=== PATIENT | male | born 1950 | race Caucasian/White ===

== ENCOUNTER 2016-05-22 14:02 | Inpatient (IN) | payer OTHER ==
--- NOTE | ~2016-05-22 | DS ---
Unit #: [id number] #: [id number] Patient: KAMAR ROGERS [id number] [place], [place] [address] [id number] I MR#: [id number] NAME: KAMAR ROGERS ROOM: 468 Age: 65 Sex: M Admission Date: 05/22/2016 : 1950 Discharge Date: 05/25/2016 Attending Physician: Lefty Cuellar M.D. Primary Care Physician: Anna Cedeño M.D. DISCHARGE SUMMARY CONSULTANTS 1. Dr. Clark. 2. Dr. Alcocer. PROCEDURES DONE Laparoscopic cholecystectomy was attempted and converted to a full cholecystectomy. ADMITTING DIAGNOSES 1. Abdominal pain. 2. Acute cholecystitis. FURTHER DIAGNOSES 1. History of partial small bowel obstruction. 2. History of prostate cancer. 3. Sinus bradycardia. HISTORY OF PRESENTING ILLNESS Patient is a 65-year-old man with a past medical history of small bowel obstruction, history of prostate cancer, history of chronic smoking, presented to the emergency room with a chief complaint of abdominal pain. HOSPITAL COURSE In the initial evaluation he was noted to have cholecystitis and for further evaluation Surgery was consulted. Surgery started on antimicrobials, planned to do a laparoscopic cholecystectomy and due to the amount of adhesions in the abdomen it was converted to open cholecystectomy. He tolerated the procedure well. In the preop period he was noted to have sinus bradycardia. Cardiology was consulted. A lipid panel was checked. His LDL is 140; started on Lipitor. I did explain to him about the side effects of Lipitor and stating including rhabdomyolysis, elevated LFTs. He understands and agrees to be on that. Cardiology recommended further ischemic workup to be done as an outpatient once he is discharged. He was counseled strongly to quit smoking. He has a followup appointment with Dr. Clark on July 16 at 2:15 p.m. in his office and also a followup appointment with general surgeons in a week for removing the amanda. He is doing clinically better and he wants to go home. Requested him to follow with his primary care and with Cardiology and with Surgery after discharge. Unit #: [id number] #: [id number] Patient: KAMAR ROGERS PHYSICAL EXAMINATION ON THE DAY OF DISCHARGE VITAL SIGNS: Temperature 98.2, pulse rate 76, respiratory rate 18, blood pressure 125/57. GENERAL: Patient is alert and oriented x3, lying in the bed in no acute distress. HEENT: Normocephalic and atraumatic. No icterus. PERRLA. Extraocular movements intact. NECK: Neck is supple. No JVD. HEART: S1, S2, bradycardic. CHEST: Bilateral equal air entry, clear to auscultation. ABDOMEN: Surgical site looks clean. EXTREMITIES: No edema. Normal pulses. DISCHARGE MEDICATIONS 1. Levaquin 750 mg p.o. daily for three more days. 2. Suring 7.5/325 mg one tablet p.o. q.6 h. p.r.n. for pain. 3. Lipitor 40 mg p.o. daily. 4. Omeprazole 40 mg p.o. daily. DISCHARGE INSTRUCTIONS All the discharge instructions were explained in detail to the patient. Total time spent in his care 28 minutes. Dictated by... Dany De Souza TD: 05/28/2016 15:14 JOB #: [id number] DISCHARGE SUMMARY X X DISCHARGE SUMMARY
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
--- NOTE | ~2016-05-22 | CR72 ---
[facility] A Service of [facility] RADIOLOGY TEXT RESULTS PATIENT: KAMAR ROGERS LOCATION: [facility] 468 : [birth year] UNIT #: [id number] AGE: [address]: Lefty Cuellar MD SEX: M ORDER DR: [id number] [facility] [address]. [place], [place] [address] [id number] I MR#: [id number] Acc #: [id number] NAME: KAMAR ROGERS : 1950 SEX: M STUDY DATE/TIME: 05/25/2016 2:36 UNIT: [facility] ROOM: [facility] STUDY DESCRIPTION: CR Chest Single View Portable Attending Physician: Lefty Cuellar M.D. Ordering Physician: Mary Burdick M.D. Primary Care Physician: Anna Cedeño M.D. MEDICAL IMAGING REPORT This report is preliminary unless electronic signature is present EXAM AP portable chest, 05/25/2016 at 0236. HISTORY Respiratory stress. Low oxygen saturations. Shortness of breath. COMPARISON AP portable chest, 06/19/2012. FINDINGS Mild bibasilar atelectasis or infiltrates are present with probable trace left pleural fluid. Old left rib fractures. Heart size within normal limits. No pneumothorax. IMPRESSION 1. Mild bibasilar atelectasis or infiltrates with probable trace left pleural fluid. 2. Old left rib fractures. 3. Old right rib fracture, not included in the body of the report. Dictated by... Larissa Del Rio M.D. THIS IS AN ELECTRONICALLY VERIFIED REPORT Larissa Del Rio M.D. at 05/29/2016 8:37 AM LLH/mor TD: 05/25/2016 10:20 JOB #: [id number] MEDICAL IMAGING REPORT [facility] A Service of [facility] RADIOLOGY TEXT RESULTS PATIENT: KAMAR ROGERS LOCATION: [facility] 468- : [birth year] UNIT #: [id number] AGE: [address]: Lefty Cuellar MD SEX: M ORDER DR: Page 1 of 1 COPY
--- NOTE | ~2016-05-22 | NM22 ---
[facility] A Service of [facility] RADIOLOGY TEXT RESULTS PATIENT: KAMAR ROGERS LOCATION: [facility] 468-01 : [birth year] UNIT #: [id number] AGE: [address]: Lefty Cuellar MD SEX: M ORDER DR: [id number] [facility] [address] [facility]. [place], [place] [address] [id number] I MR#: [id number] Acc #: [id number] NAME: KAMAR ROGERS : 1950 SEX: M STUDY DATE/TIME: 05/22/2016 20:49 UNIT: [facility] ROOM: [facility] STUDY DESCRIPTION: NM Hepatobiliary W GB Pharm Attending Physician: Lefty Cuellar M.D. Ordering Physician: Emilee Etienne M.D. Primary Care Physician: Anna Cedeño M.D. MEDICAL IMAGING REPORT This report is preliminary unless electronic signature is present EXAM Hepatobiliary scan INDICATIONS Right upper quadrant abdominal pain. Abnormal CT scan of the abdomen. COMPARISON CT abdomen and pelvis dated 05/22/2016. FINDINGS 5.6 mCi Technetium 99m Choletec was administered IV per protocol. There is rapid uptake of the radiotracer by the liver with subsequent excretion into the biliary tract. The gallbladder does not opacify by 60 minutes indicating at least chronic or acute cholecystitis. Unfortunately due to patient's pain, he could not tolerate additional imaging to the 2-hour can to differentiate acute and chronic cholecystitis. There is normal distribution of radiotracer in the small bowel. IMPRESSION Nonvisualization of the gallbladder at 60 minutes indicating either an acute or chronic cholecystitis. Given the findings on the CT scan, acute cholecystitis is strongly favored. Please note that traditionally 2 hour imaging is required to differentiate acute and chronic cholecystitis, however, the patient could not tolerate prolonged imaging due to the right upper quadrant abdominal pain. Dictated by... Compa Keyes M.D. THIS IS AN ELECTRONICALLY VERIFIED REPORT Compa Keyes M.D. at 05/23/2016 12:20 PM C/bd [facility] A Service of [facility] RADIOLOGY TEXT RESULTS PATIENT: KAMAR ROGERS LOCATION: [facility] 468-01 : [birth year] UNIT #: [id number] AGE: [address]: Lefty Cuellar MD SEX: M ORDER DR: TD: 05/23/2016 11:30 JOB #: [id number] MEDICAL IMAGING REPORT COPY
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
--- NOTE | ~2016-05-22 | CT2 ---
[facility] A Service of [facility] & [facility] RADIOLOGY TEXT RESULTS PATIENT: KAMAR ROGERS LOCATION: [facility] 468-01 : [birth year] UNIT #: [id number] AGE: [address]: Lefty Cuellar MD SEX: M ORDER DR: [id number] [facility] [address] [place], [place] [address] [id number] I MR#: [id number] Acc #: [id number] NAME: KAMAR ROGERS : 1950 SEX: M STUDY DATE/TIME: 05/22/2016 14:37 UNIT: [facility] ROOM: [facility] STUDY DESCRIPTION: CT Abd and Pelv W Cont Attending Physician: Emilee Etienne M.D. Ordering Physician: Ac Christianson M.D. Primary Care Physician: Anna Cedeño M.D. MEDICAL IMAGING REPORT This report is preliminary unless electronic signature is present EXAM Abdomen and pelvis CT with contrast, 05/22/2016 HISTORY Right-sided abdominal pain beginning 1 day ago. TECHNIQUE Axial images were obtained with oral and intravenous contrast. 100 mL of Isovue was used. Comparison made to previous scan from 09/13/2010. CT dose-reduction techniques were employed. This CT exam was performed with one or more of the following radiation dose reduction techniques: automatic exposure control, adjustment of mA and/or kV according to patient size, and iterative reconstruction. FINDINGS The liver has a somewhat patchy peripheral enhancement pattern. This may simply reflect the phase of contrast injection. The appearance was similar on the previous scan in 2010. No suspicious liver lesions are seen and there is no evidence of bowel duct dilatation. The gallbladder wall is edematous. No calcified stones are seen. Consider further evaluation with nuclear medicine gallbladder imaging and ultrasound. This is suspicious for cholecystitis. The spleen, pancreas, kidneys and adrenals are unremarkable. Postoperative changes are seen in the abdomen. There is no evidence of bowel obstruction. The appendix is normal. In the pelvis there is no evidence of adenopathy, mass or fluid collection. Postoperative changes of lower lumbar laminectomy noted. IMPRESSION 1. Abnormal gallbladder with edematous gallbladder wall suspicious for acute cholecystitis. Consider further evaluation with ultrasound and nuclear medicine imaging. [facility] A Service of [facility] & [facility] RADIOLOGY TEXT RESULTS PATIENT: KAMAR ROGERS LOCATION: [facility] 468-01 : [birth year] UNIT #: [id number] AGE: [address]: Lefty Cuellar MD SEX: M ORDER DR: 2. No other acute or inflammatory changes are seen elsewhere in the abdomen or pelvis. No evidence of bowel obstruction or free air. 3. Atherosclerotic changes in the lower abdominal aorta are quite extensive and there is occlusion of the left common and proximal external iliac arteries with collateral refilling of the common femoral artery at the left groin. This is accompanied by mild aneurysmal dilatation of the infrarenal abdominal aorta to a maximum diameter of 2.7 cm. The left iliac occlusive disease is new since the 2011 CT scan. Dictated by... Michael Louis M.D. THIS IS AN ELECTRONICALLY VERIFIED REPORT Michael Louis M.D. at 05/23/2016 3:41 PM RASIHDA/sharon TD: 05/22/2016 23:25 JOB #: [id number] MEDICAL IMAGING REPORT COPY
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
--- NOTE | ~2016-05-22 | EKG ---
PATIENT: KAMAR ROGERS UNIT #: [id number] Ventricular Rate: 46 BPM Atrial Rate: 46 BPM P-R Interval: 142 ms QRS Duration: 94 ms Q-T Interval: 482 ms QTC Calculation(Bezet): 421 ms P [place]: 73 degrees Calculated R [place]: 40 degrees Calculated T [place]: 44 degrees Diagnosis Line: Sinus bradycardia Diagnosis Line: Otherwise normal ECG Diagnosis Line: When compared with ECG of 19-JUN-2012 18:22, Diagnosis Line: Vent. rate has decreased BY 24 BPM Diagnosis Line: Confirmed by JOE JOSE MD ([id number]) on Diagnosis Line: 05/23/2016 11:26:08 AM INTERPRETING MD: REBECA YOUSSEF
--- NOTE | ~2016-05-22 | OR ---
Unit #: [id number] #: [id number] Patient: KAMAR ROGERS [id number] [facility]. [place], [place] [address] [id number] Keerthi MR#: [id number] NAME: KAMAR ROGERS ROOM: [facility] Date of Procedure: 05/23/2016 Admission Date: 05/22/2016 Surgeon: Gonzales Hicks III, M.D. : 1950 Attending Physician: Lefty Cuellar M.D. Primary Care Physician: Anna Cedeño M.D. OPERATIVE REPORT PREOPERATIVE DIAGNOSIS Acute cholecystitis. POSTOPERATIVE DIAGNOSES Acute cholecystitis with multiple intraabdominal adhesions. PROCEDURE PERFORMED Attempted laparoscopic cholecystectomy with conversion to open cholecystectomy. DIRECTOR STYLE Dr. Power Meadows. SPECIMEN Gallbladder to pathology. COMPLICATIONS None apparent. ESTIMATED BLOOD LOSS 150 mL. INDICATIONS FOR PROCEDURE This is a 65-year-old gentleman, who presented with acute right upper quadrant pain. It is noted to have what looked like acute cholecystitis on imaging. He is here today for lap jeanna, but understands risks of converting to an open because he has had 2 prior midline incisions. DESCRIPTION OF PROCEDURE After consent was obtained, the patient was brought to the operating room and placed in the supine position. General anesthetic was administered. His abdomen was prepped and draped in standard surgical fashion. I was able to palpate the gallbladder through the abdominal wall prior to the case. I used a 5-mm Optiview to attempt entry into the abdominal cavity. Once I thought, I was then what was the peritoneum. I tried to insufflate; however, there was a bunch of wispy adventitial type tissue consistent with adhesions. I really could make any progress laparoscopically to create the space to work, so I had made the decision to convert to an open procedure. I made a right upper quadrant incision. I divided the rectus muscle and entered into the peritoneal cavity without any difficulty. He had a lot of adhesions that basically enveloped the gallbladder itself. I was able to shell those out and then once doing so, Unit #: [id number] #: [id number] Patient: KAMAR ROGERS I was able to identify the gallbladder easily. I used the dome down technique to take the gallbladder off the liver bed using a combination of blunt dissection and cautery. Once I had the gallbladder skeletonized, I then dissected out the cystic duct and cystic artery and I placed 2 clips proximally on this and then divided the structure and sent it to pathology. I used a Bovie cautery for hemostasis along the liver bed. I irrigated and then placed some Surgicel on the liver bed to aid in hemostasis. Hemostasis was excellent afterwards. All needle, sponge, and instrument counts were correct x2. I closed the peritoneum and posterior fascia with a running 0 Vicryl suture. The anterior fascia was reapproximated with interrupted #1 Vicryl suture. I then reapproximated the skin edges with stapling device. He tolerated the procedure without any problems and returned to the recovery room in stable condition. Dictated by... Gonzales Hicks III, M.D. VCL/shayy TD: 05/24/2016 08:42 JOB #: [id number] OPERATIVE REPORT X Gonzales Hicks III, MD PROCEDURE OPERATIVE NOTE
[2016-05-22 13:36] LABS: URINE SOURCE CLEAN CATCH
[2016-05-22 13:42] LABS: BASOPHIL# 0.1 X10e3 (0-0.3); BASOPHIL% 0.7 % (0-2.5); DIFF IND NO; EOSINOPHIL# 0.1 X10e3 (0-0.7); EOSINOPHIL% 1.2 % (0.0-7.0); HEMATOCRIT 47.8 % (38.0-50.0); HEMOGLOBIN 16.1 gm/dL (13.0-16.0); LYMPHOCYTE# 0.9 X10e3 (1.0-3.5); LYMPHOCYTE% 11.6 % (17.0-45.0); MEAN CELL VOLUME 91.2 FL (83-96); MEAN CORPUSCULAR HEMOGLOBIN 30.7 PG (28-34); MEAN CORPUSCULAR HGB CONC 33.6 g/dL (30-36); MEAN PLATELET VOLUME 7.8 FL (6.5-11.5); MONOCYTE# 0.7 X10e3 (0-1.0); MONOCYTE% 9.5 % (3.0-12.0); PLATELET COUNT 176 X10e3 (140-420); RED BLOOD COUNT 5.24 X10e (3.90-5.60); RED CELL DISTRIBUTION WIDTH 14.1 % (11.0-15.5); WHITE BLOOD COUNT 7.8 X10e3 (4.0-10.5)
[2016-05-22 14:01] LABS: URINE APPEARANCE CLEAR; URINE BILIRUBIN NEG (NEG); URINE BLOOD NEG (NEG); URINE COLOR YELLOW; URINE GLUCOSE NEG (NEG); URINE KETONE NEG (NEG); URINE LEUKOCYTE ESTERASE TRACE (NEG); URINE NITRATE NEG (NEG); URINE PROTEIN 2+ (NEG); URINE SPECIFIC GRAVITY 1.024 (1.003-1.035)
[~2016-05-22 14:02] MED LIST: ACETAMINOPHEN650 M4 PO; DIAZEPAM PO; FLEXERIL10 MG PO; IBUPROFEN800 MG PO; LORTAB 10/500 T1 TAB PO; NO MEDICATIONS; PREDNISONE PO; VIBRAMYCIN100 M1 PO
[2016-05-22 14:04] LABS: URBCS1 AUWI 0-2 /[HPF] (0-2); URINE BACTERIA AUWI NEG (NEGATIVE); URINE SQUAMOUS EPITHELIAL CELL OCC /[HPF]; UWBCS1 AUWI 0-2 (0-5)
[2016-05-22 14:07] LABS: CULTURE INDICATED? NO; URINE PH 9.5 (5-8)
[2016-05-22 14:18] LABS: ALBUMIN SERUM 4.3 g/dL (3.5-5.0); ALKALINE PHOSPHATASE 86 U/L (32-92); ALT (SGPT) 18 U/L (10-40); AMYLASE 34 U/L (0-46); AST (SGOT) 25 U/L (10-42); BILIRUBIN, DIRECT 0.1 mg/dL (0.0-0.2); BILIRUBIN,INDIRECT 0.6 mg/dL (0.0-0.9); BILIRUBIN,TOTAL 0.7 mg/dL (0.2-2.0); BLOOD UREA NITROGEN 15 mg/dL (9-23); BUN/CREATININE RATIO 18.75; CARBON DIOXIDE 32 mmol/L (22-31); CHLORIDE 102 mmol/L (100-111); CREATININE SERUM 0.8 mg/dL (0.6-1.4); GLOM FILT RATE Estimated ABOVE60 mL/min (>60); GLUCOSE FASTING 109 mg/dL (70-110); LIPASE 20 U/L (22-51); POTASSIUM 3.6 mmol/L (3.5-5.1); PROTEIN TOTAL SERUM 7.4 g/dL (6.0-8.3); SODIUM 138 mmol/L (135-145)
[2016-05-22] MEDS ORDERED: OMEPRAZOLE40 M1 PO (15:50)
[2016-05-22 18:15] LABS: CK TOTAL 47 IU/L (36-174)
[2016-05-23 00:26] LABS: CK TOTAL 57 IU/L (36-174)
[2016-05-23 04:34] LABS: BASOPHIL# 0.1 X10e3 (0-0.3); BASOPHIL% 0.9 % (0-2.5); EOSINOPHIL# 0.2 X10e3 (0-0.7); EOSINOPHIL% 3.7 % (0.0-7.0); MEAN CELL VOLUME 91.1 FL (83-96); MEAN CORPUSCULAR HEMOGLOBIN 30.2 PG (28-34); MEAN CORPUSCULAR HGB CONC 33.2 g/dL (30-36); MONOCYTE# 0.8 X10e3 (0-1.0); MONOCYTE% 11.9 % (3.0-12.0); NEUTROPHIL# 4.6 X10e3 (1.5-7.1); NEUTROPHIL% 68.5 % (40-75); PLATELET COUNT 153 X10e3 (140-420); RED BLOOD COUNT 4.28 X10e (3.90-5.60); RED CELL DISTRIBUTION WIDTH 13.9 % (11.0-15.5); WHITE BLOOD COUNT 6.7 X10e3 (4.0-10.5)
[2016-05-23 04:43] LABS: HEMOGLOBIN 12.9 gm/dL (13.0-16.0)
[2016-05-23 04:45] LABS: DIFF IND NO
[2016-05-23 04:52] LABS: ALBUMIN SERUM 3.3 g/dL (3.5-5.0); ALKALINE PHOSPHATASE 83 U/L (32-92); ALT (SGPT) 70 U/L (10-40); AST (SGOT) 65 U/L (10-42); BILIRUBIN,TOTAL 0.8 mg/dL (0.2-2.0); BLOOD UREA NITROGEN 14 mg/dL (9-23); CALCIUM SERUM 8.3 mg/dL (8.4-10.2); CARBON DIOXIDE 30 mmol/L (22-31); CHLORIDE 103 mmol/L (100-111); CREATININE SERUM 0.8 mg/dL (0.6-1.4); GLOM FILT RATE Estimated ABOVE60 mL/min (>60); GLUCOSE FASTING 85 mg/dL (70-110); POTASSIUM 3.8 mmol/L (3.5-5.1); PROTEIN TOTAL SERUM 5.7 g/dL (6.0-8.3); SODIUM 138 mmol/L (135-145)
[2016-05-23 06:46] LABS: PROTHROMBIN TIME (PATIENT) 10.4 SECONDS (9.6-11.5)
[2016-05-23 07:12] LABS: %MB 2.9 % (0.0-4.0); MB 2.1 ng/ml
[2016-05-24 04:01] LABS: BASOPHIL% 0.1 % (0-2.5); DIFF IND NO; HEMATOCRIT 40.3 % (38.0-50.0); HEMOGLOBIN 13.4 gm/dL (13.0-16.0); LYMPHOCYTE# 0.4 X10e3 (1.0-3.5); MEAN CELL VOLUME 91.9 FL (83-96); MEAN CORPUSCULAR HEMOGLOBIN 30.5 PG (28-34); MEAN CORPUSCULAR HGB CONC 33.3 g/dL (30-36); MEAN PLATELET VOLUME 8.7 FL (6.5-11.5); MONOCYTE# 0.9 X10e3 (0-1.0); MONOCYTE% 8.6 % (3.0-12.0); NEUTROPHIL# 9.3 X10e3 (1.5-7.1); NEUTROPHIL% 87.3 % (40-75); PLATELET COUNT 158 X10e3 (140-420); RED BLOOD COUNT 4.39 X10e (3.90-5.60); RED CELL DISTRIBUTION WIDTH 13.9 % (11.0-15.5); WHITE BLOOD COUNT 10.7 X10e3 (4.0-10.5)
[2016-05-24 04:37] LABS: ALBUMIN SERUM 3.4 g/dL (3.5-5.0); ALKALINE PHOSPHATASE 92 U/L (32-92); ALT (SGPT) 74 U/L (10-40); AST (SGOT) 55 U/L (10-42); BILIRUBIN,TOTAL 0.9 mg/dL (0.2-2.0); BLOOD UREA NITROGEN 16 mg/dL (9-23); BUN/CREATININE RATIO 17.77; CALCIUM SERUM 8.6 mg/dL (8.4-10.2); CARBON DIOXIDE 26 mmol/L (22-31); CHLORIDE 102 mmol/L (100-111); CHOLESTEROL 195 mg/dL (0-200); CREATININE SERUM 0.9 mg/dL (0.6-1.4); GLOM FILT RATE Estimated ABOVE60 mL/min (>60); GLUCOSE FASTING 112 mg/dL (70-110); HDL CHOLESTEROL 46 mg/dL (29-75); LDL CHOLESTEROL 140 mg/dL (-130); LDL/HDL RATIO 3 RATIO (0-4); POTASSIUM 4.4 mmol/L (3.5-5.1); PROTEIN TOTAL SERUM 5.9 g/dL (6.0-8.3); SODIUM 137 mmol/L (135-145); TRIGLYCERIDES 47 mg/dL (10-160)
[2016-05-25 04:59] LABS: HEMATOCRIT 35.4 % (38.0-50.0); HEMOGLOBIN 11.8 gm/dL (13.0-16.0); MEAN CELL VOLUME 91.5 FL (83-96); MEAN CORPUSCULAR HEMOGLOBIN 30.5 PG (28-34); MEAN CORPUSCULAR HGB CONC 33.3 g/dL (30-36); MEAN PLATELET VOLUME 7.9 FL (6.5-11.5); RED BLOOD COUNT 3.87 X10e (3.90-5.60); RED CELL DISTRIBUTION WIDTH 13.8 % (11.0-15.5); WHITE BLOOD COUNT 7.1 X10e3 (4.0-10.5)
[2016-05-25 06:09] LABS: ALBUMIN SERUM 2.9 g/dL (3.5-5.0); ALKALINE PHOSPHATASE 71 U/L (32-92); ALT (SGPT) 46 U/L (10-40); AST (SGOT) 42 U/L (10-42); BILIRUBIN,TOTAL 0.8 mg/dL (0.2-2.0); BLOOD UREA NITROGEN 11 mg/dL (9-23); BUN/CREATININE RATIO 12.22; CALCIUM SERUM 8.2 mg/dL (8.4-10.2); CARBON DIOXIDE 28 mmol/L (22-31); CHLORIDE 102 mmol/L (100-111); CREATININE SERUM 0.9 mg/dL (0.6-1.4); GLOM FILT RATE Estimated ABOVE60 mL/min (>60); GLUCOSE FASTING 86 mg/dL (70-110); POTASSIUM 3.8 mmol/L (3.5-5.1); PROTEIN TOTAL SERUM 5.3 g/dL (6.0-8.3); SODIUM 135 mmol/L (135-145)
[2016-05-25] MEDS ORDERED: LEVAQUIN750 M1 PO (14:01)
[2016-05-25] MEDS ORDERED: LIPITOR40 MG PO (14:02)
[2016-05-25] MEDS ORDERED: HYDROCODON-ACE1 EAC9 PO (14:08)
== END 2016-05-25 14:30 | disposition home or self-care (01) | DRG 416 ==
LOC: CED 14:02 → CEDOF 17:05 → C4C 19:49
PROVIDERS: Emergency Medicine; Family Medicine; Internal Medicine; Internal Medicine Cardiovascular Disease; Specialist
PROC: B24BYZZ Ultrasonography of Heart with Aorta using Other Contrast (ICD-10-PCS; 2016-05-23)
PROC: 0FT40ZZ Resection of Gallbladder, Open Approach (ICD-10-PCS; principal; 2016-05-24)
PROC: 0FJ44ZZ Inspection of Gallbladder, Percutaneous Endoscopic Approach (ICD-10-PCS; 2016-05-24)
DX: K81.0 Acute cholecystitis (principal); J44.9 Chronic obstructive pulmonary disease, unspecified; I07.1 Rheumatic tricuspid insufficiency; I70.0 Atherosclerosis of aorta; I70.202 Unspecified atherosclerosis of native arteries of extremities, left leg; F17.210 Nicotine dependence, cigarettes, uncomplicated; Z85.46 Personal history of malignant neoplasm of prostate; K21.9 Gastro-esophageal reflux disease without esophagitis; I71.4 Abdominal aortic aneurysm, without rupture; F10.21 Alcohol dependence, in remission; F11.90 Opioid use, unspecified, uncomplicated; R00.1 Bradycardia, unspecified; Z53.31 Laparoscopic surgical procedure converted to open procedure; K66.0 Peritoneal adhesions (postprocedural) (postinfection); Z71.6 Tobacco abuse counseling
CPT/HCPCS: 36415; 71010; 74177; 78227; 80048; 80053; 80061; 80076; 81003; 82150; 82550; 82553; 83690; 84443; 84484; 85025; 85027; 85610; 88304; 93005; 93306; 96361; 96374; 96375; 99285; A9537; J2250; J2270; J2405; J2543; J3010; Q9967

== ENCOUNTER → 2016-06-22 | Outpatient (CLI) | payer OTHER ==
[~2016-06-22] MED LIST changes: +HYDROCODON-ACE1 EAC9 PO; +LEVAQUIN750 M1 PO; +LIPITOR40 MG PO; +OMEPRAZOLE40 M1 PO
--- NOTE | ~2016-06-22 | TH ---
Unit #: [id number] #: [id number] Patient: KAMAR ROGERS [id number] [address] [address] [id number] O MR#: [id number] NAME: KAMAR ROGERS : 1950 SEX: M STUDY DATE/TIME: 06/22/2016 UNIT: [facility] ROOM: STUDY DESCRIPTION: Lexiscan stress test - Nuclear Attending Physician: Brent Clark M.D. Referring Physician: Brent Clark M.D. Primary Care Physician: Anna Cedeño M.D. CARDIOLOGY REPORT PROCEDURE PERFORMED Lexiscan Cardiolite stress test - Nuclear portion. PROCEDURE Using technetium 99m-labeled Cardiolite, rest and stress SPECT images were obtained. Multiple SPECT images were obtained in various views, including horizontal and vertical long axis and short axis views of the left ventricle. Images were obtained by gated SPECT method. The patient was administered 10.14 mCi of Cardiolite at rest. The patient was administered 29.9 mCi of Cardiolite after Lexiscan infusion was completed. On the stress images, there is a small area of mildly decreased tracer uptake activity anteroapically. The rest images also show a small area of decreased tracer uptake activity anteroapically. Comparing the rest and stress images, there is a small area of predominantly fixed defect seen anteroapically. Cannot rule out soft tissue artifact versus infarct. No obvious stress-induced ischemia noted. The left ventricular ejection fraction is calculated to be 63%. There is no focal wall motion abnormality seen. CONCLUSION 1. No obvious stress-induced ischemia noted. 2. There is a small area of predominantly fixed defect seen anteroapically. Cannot rule out infarct versus soft tissue artifact. 3. The left ventricular ejection fraction is calculated to be 63%. 4. There is no focal wall motion abnormality seen. 5. Technically somewhat limited study. Clinical correlation is requested. Dictated by... Dany Saini TD: 06/22/2016 14:14 JOB #: [id number] Unit #: [id number] #: [id number] Patient: KAMAR ROGERS CARDIOLOGY REPORT Page 1 of 1 X Kathi Marquez MD <ELECTRONICALLY SIGNED> 09/29/16 [facility] CARDIOLOGY REPORT
--- NOTE | ~2016-06-22 | ST ---
Unit #: [id number] #: [id number] Patient: KAMAR ROGERS [id number] [place], [place] [address] [id number] O MR#: [id number] NAME: KAMAR ROGERS : 1950 SEX: M STUDY DATE/TIME: UNIT: [facility] ROOM: STUDY DESCRIPTION: Stress Test Attending Physician: Brent Clark M.D. Referring Physician: Brent Clark M.D. Primary Care Physician: Anna Cedeño M.D. CARDIOLOGY REPORT DESCRIPTION Baseline EKG - sinus bradycardia, heart rate 55 beast/minute, poor R wave progression, left ventricular hypertrophy. Prolonged QT. Lexiscan is a four minute test with Lexiscan being injected within the first minute followed by Cardiolite. EKG during the test was equivocal to baseline. No acute ischemic changes. The patient had no complaints of chest pain, palpitations or dizziness. Had increased shortness of breath and weakness which resolved in recovery phase. Maximum heart rate response was 95 beats/minute with a maximum blood pressure response of 153/73 mmHg. Cardiolite was injected after the Lexiscan. Radionuclide test pending. Please correlate with nuclear images. Dictated by... Aaliyah Neil A.P.R.N. for Dany Saini/rajwinder TD: 06/22/2016 11:58 JOB #: [id number] CARDIOLOGY REPORT Page 1 of 1 X Aaliyah Neil APRN CARDIOLOGY REPORT
== END | disposition home or self-care (01) ==
LOC: CNUC 08:56
DX: I25.10 Atherosclerotic heart disease of native coronary artery without angina pectoris (principal); I27.2 Other secondary pulmonary hypertension; R94.39 Abnormal result of other cardiovascular function study
CPT/HCPCS: 78452; 93017; A9500; J2785

== ENCOUNTER → 2016-07-06 | Outpatient (CLI) | payer OTHER ==
--- NOTE | ~2016-07-06 | CT138 ---
[facility] A Service [facility] RADIOLOGY TEXT RESULTS PATIENT: KAMAR ROGERS LOCATION: CCAT : [birth year] UNIT #: [id number] AGE: [address]: Anna Cedeño MD SEX: M ORDER DR: [id number] [facility] [address] [facility]. [place], [place] [address] [id number] O MR#: [id number] Acc #: [id number] NAME: KAMAR ROGERS : 1950 SEX: M STUDY DATE/TIME: 07/06/2016 15:16 UNIT: [facility]AT ROOM: STUDY DESCRIPTION: CT Lung screening initial Attending Physician: Anna Cedeño M.D. Referring Physician: Anna Cedeño M.D. Ordering Physician: Anna Cedeño M.D. Primary Care Physician: Anna Cedeño M.D. MEDICAL IMAGING REPORT This report is preliminary unless electronic signature is present EXAM CT lung cancer screening 07/06/2016 INDICATIONS Lung cancer screening. 50 pack year smoking history. Cough for the past through [address] of the chest utilizing low-dose lung cancer screening protocol. CTDI 8.32 mGy, total DLP 322 mGy-cm. This CT exam was performed with one or more of the following radiation dose reduction techniques: automatic exposure control, adjustment of mA and/or kV according to patient size, and iterative reconstruction. COMPARISON STUDIES None FINDINGS Emphysema. No suspicious pulmonary nodule. No adenopathy. Coronary artery calcification. The included upper abdomen shows no acute abnormality. No aggressive appearing bone lesion. IMPRESSION 1. No suspicious pulmonary nodule. 2. Emphysema. 3. Lung RADS category 1 negative. Per the ACR lung RADS recommendations suggest patient continue with annual low-dose lung cancer screening. Dictated by... Bert Moses M.D. [facility] A Service [facility] RADIOLOGY TEXT RESULTS PATIENT: KAMAR ROGERS LOCATION: CCAT : [birth year] UNIT #: [id number] AGE: [address]: Anna Cedeño MD SEX: M ORDER DR: THIS IS AN ELECTRONICALLY VERIFIED REPORT Bert Moses M.D. at 07/09/2016 8:24 AM Yvrose TD: 07/06/2016 18:40 JOB #: [id number] MEDICAL IMAGING REPORT Page 1 of 1 COPY
== END | disposition home or self-care (01) ==
LOC: CCAT 14:34
DX: F17.210 Nicotine dependence, cigarettes, uncomplicated (principal); J43.9 Emphysema, unspecified
CPT/HCPCS: G0297

== ENCOUNTER 2016-08-10 22:26 | Emergency (ER) | payer OTHER | END 2016-08-10 23:02 | disposition home or self-care (01) | LOC: SED 22:26 | DX: H60.93 Unspecified otitis externa, bilateral (principal); I10 Essential (primary) hypertension; R01.1 Cardiac murmur, unspecified; F17.210 Nicotine dependence, cigarettes, uncomplicated; Z79.899 Other long term (current) drug therapy | CPT/HCPCS: 99282 ==

== ENCOUNTER → 2016-09-26 | Outpatient (CLI) | payer OTHER ==
--- NOTE | ~2016-09-26 | US135 ---
[facility] A Service of [facility] RADIOLOGY TEXT RESULTS PATIENT: KAMAR ROGERS LOCATION: CNIV : [birth year] UNIT #: [id number] AGE: [address]: Rolanda Avendano MD SEX: M ORDER DR: [id number] [facility] [address] [facility]. [place], [place] [address] [id number] O MR#: [id number] Acc #: [id number] NAME: KAMAR ROGERS : 1950 SEX: M STUDY DATE/TIME: 09/26/2016 12:50 UNIT: CNIV ROOM: STUDY DESCRIPTION: US U/L Ext Art Study Comp Jasiel Attending Physician: Rolanda Avendano M.D. Referring Physician: Rolanda Avendano M.D. Ordering Physician: Rolanda Avendano M.D. Primary Care Physician: Anna Cedeño M.D. MEDICAL IMAGING REPORT This report is preliminary unless electronic signature is present EXAM Lower extremity arterial segmental pressures, 09/26/2016 HISTORY Absent pulse. Claudication. FINDINGS The right brachial pressure is 138 and the left brachial pressure is 128. The right upper thigh pressure is 167, lower thigh 160, calf 140, dorsalis pedis 143, posterior tibial 140, and toe 95 for an ckhsu-fu-amocdvva index of 1.04. Toe-brachial index on the right is 0.69. The left upper thigh pressure is 75, lower thigh 83, calf 68, dorsalis pedis 67, posterior tibial 65, and toe 49 for an zmpuc-dc-edgqthau index of 0.49. Toe-brachial index on the left is 0.36. Doppler waveform analysis indicates a biphasic signal in the posterior tibial and dorsalis pedis artery on the right and a monophasic signal in the posterior tibial and dorsalis pedis arteries on the left. Pulse volume recording tracings demonstrate damping of the amplitude in the signal at all levels in the left leg compared to the right. IMPRESSION Normal perfusion to the right leg with an ankle-brachial index of 1.04. Severe ischemia of the left leg with an ankle-brachial index of 0.49. 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 Dictated by... [facility] A Service of [facility] & [facility] RADIOLOGY TEXT RESULTS PATIENT: KAMAR ROGERS LOCATION: IV : [birth year] UNIT #: [id number] AGE: [address]: Rolanda Avendano MD SEX: M ORDER DR: Feliciano Jalloh M.D. THIS IS AN ELECTRONICALLY VERIFIED REPORT Feliciano Jalloh M.D. at 09/28/2016 7:28 AM JEAN MARIE/drew TD: 09/27/2016 00:24 JOB #: [id number] MEDICAL IMAGING REPORT Page 1 of 1 COPY
--- NOTE | ~2016-09-26 | US37 ---
[facility] A Service of [facility] & [facility] RADIOLOGY TEXT RESULTS PATIENT: KAMAR ROGERS LOCATION: CNIV : [birth year] UNIT #: [id number] AGE: [address]: Rolanda Avendano MD SEX: M ORDER DR: [id number] [facility] [address] [place], [place] [address] [id number] O MR#: [id number] Acc #: [id number] NAME: KAMAR ROGERS : 1950 SEX: M STUDY DATE/TIME: 09/26/2016 13:21 UNIT: CNIV ROOM: STUDY DESCRIPTION: US Carotid W/Doppler Bilateral Attending Physician: Rolanda Avendano M.D. Referring Physician: Rolanda Avendano M.D. Ordering Physician: Rolanda Avendano M.D. Primary Care Physician: Anna Cedeño M.D. MEDICAL IMAGING REPORT This report is preliminary unless electronic signature is present EXAM Carotid duplex scan, 09/26/2016 HISTORY Carotid stenosis. FINDINGS The right common carotid artery has a small amount of heterogeneous plaque. There is heterogeneous dense plaque in the right carotid bulb, which extends up into the proximal internal and external carotid arteries. Peak systolic velocity in the distal right internal carotid artery is 124 cm/sec with an end-diastolic velocity of 45 cm/sec. The ICA/CCA ratio on the right is 1.6. Peak systolic velocity in the right external carotid artery is 105 cm/sec. The right vertebral artery is patent with antegrade flow. The left common carotid artery has a small amount of heterogeneous plaque. There is heterogeneous dense plaque in the left carotid bulb, which extends up into the proximal internal and external carotid arteries. Peak systolic velocity in the mid left internal carotid artery is 138 cm/sec with an end-diastolic velocity of 47 cm/sec. The ICA/CCA ratio on the left is 1.6. Peak systolic velocity in the left external carotid artery is 133 cm/sec. The left vertebral artery is patent with antegrade flow. IMPRESSION Small amount of plaque, but no significant stenosis (less than 50%) in the right internal and external carotid arteries. Moderate stenosis (50% to 69%) in the left internal carotid artery. Significant stenosis of the left external carotid artery. Patent vertebral arteries bilaterally with antegrade flow. [facility] A Service of [facility] RADIOLOGY TEXT RESULTS PATIENT: KAMAR ROGERS LOCATION: [facility] : [birth year] UNIT #: [id number] AGE: [address]: Rolanda Avendano MD SEX: M ORDER DR: Dictated by... Feliciano Jalloh M.D. THIS IS AN ELECTRONICALLY VERIFIED REPORT Feliciano Jalloh M.D. at 09/28/2016 7:28 AM JEAN MARIE/drew TD: 09/27/2016 00:41 JOB #: [id number] MEDICAL IMAGING REPORT Page 1 of 1 COPY
== END | disposition home or self-care (01) ==
LOC: CNIV 12:26
DX: R09.89 Other specified symptoms and signs involving the circulatory and respiratory systems (principal); I73.9 Peripheral vascular disease, unspecified; I65.23 Occlusion and stenosis of bilateral carotid arteries; I74.5 Embolism and thrombosis of iliac artery; E78.5 Hyperlipidemia, unspecified; M62.262 Nontraumatic ischemic infarction of muscle, left lower leg
CPT/HCPCS: 93880; 93923

== ENCOUNTER → 2016-10-17 | Outpatient (CLI) | payer OTHER ==
[2016-10-17 10:53] LABS: CREATININE SERUM 1.1 mg/dL (0.6-1.4); GLOM FILT RATE Estimated 69.6 mL/min (>60)
== END | disposition home or self-care (01) ==
LOC: CLAB 09:15
PROVIDERS: Surgery Vascular Surgery
DX: I65.23 Occlusion and stenosis of bilateral carotid arteries (principal); E78.5 Hyperlipidemia, unspecified; I73.9 Peripheral vascular disease, unspecified; M25.511 Pain in right shoulder
CPT/HCPCS: 36415; 82565; 84520

== ENCOUNTER 2016-11-09 14:19 | Emergency (ER) | payer OTHER ==
[~2016-11-09] VITALS: Ht 172.7 cm; Wt 68.0 kg
== END 2016-11-09 15:16 | disposition home or self-care (01) ==
LOC: SED 14:19
DX: H60.91 Unspecified otitis externa, right ear (principal); R03.0 Elevated blood-pressure reading, without diagnosis of hypertension; K21.9 Gastro-esophageal reflux disease without esophagitis; F17.210 Nicotine dependence, cigarettes, uncomplicated
CPT/HCPCS: 90471; 90715; 99282